=== PATIENT | female | born 1960 | race Asian ===

== ENCOUNTER 2018-12-19 13:53 | Emergency (ER) | payer BC ==
[~2018-12-19] VITALS: Ht 160 cm; Wt 54.4 kg
[2018-12-19 14:03] VITALS: Ht 160 cm; Wt 54.4 kg
[2018-12-19 16:13] LABS: BASOPHIL % 0.4 % (0-2); PLATELET COUNT 205 x10^3mcL (130-400)
[2018-12-19 16:22] LABS: CALCIUM 8.9 mg/dL (8.5-10.1); CARBON DIOXIDE 27.9 mmol/L (21-32); CHLORIDE SERUM 103 mmol/L (98-107); CREATININE SERUM 0.5 mg/dL (0.6-1.0); GFR1 > 60 mL/min; GLUCOSE SERUM 88 mg/dL (74-106); POTASSIUM SERUM 3.1 mmol/L (3.5-5.1); SODIUM SERUM 141 mmol/L (136-145)
[2018-12-19 16:26] LABS: ALBUMIN 3.7 g/dL (3.4-5.0); ALKALINE PHOSPHATASE 79 U/L (46-116); ALT/SGPT 21 U/L (14-59); AST/SGOT 23 U/L (15-37); BILIRUBIN TOTAL 0.42 mg/dL (0.20-1.00); TOTAL PROTEIN, SERUM 7.4 g/dL (6.4-8.2)
[2018-12-19 19:23] VITALS: BP 141/88
== END 2018-12-19 19:23 | disposition home or self-care (01) ==
LOC: ED 13:53
PROVIDERS: Specialist
DX: S22.20XA Unspecified fracture of sternum, initial encounter for closed fracture (principal); S40.021A Contusion of right upper arm, initial encounter; S00.83XA Contusion of other part of head, initial encounter; V49.9XXA Car occupant (driver) (passenger) injured in unspecified traffic accident, initial encounter; Y93.89 Activity, other specified; Y92.89 Other specified places as the place of occurrence of the external cause; Y99.8 Other external cause status
CPT/HCPCS: J2405; J3010; J7030; Q0092; Q9967